=== PATIENT | male | born 1980 | race Caucasian/White ===

== ENCOUNTER 2016-09-25 06:28 | Emergency (ER) | payer OTHER ==
[~2016-09-25] VITALS: Ht 193 cm; Wt 103.9 kg
[~2016-09-25 06:28] MED LIST: MULT-506 PO
[2016-09-25 06:31] VITALS: TEMP 36.7; Ht 193 cm; Wt 103.9 kg
[2016-09-25] MEDS ORDERED: MoRPHine SULFATE 10 MG/ML CARP/VIAL ONE (06:40)
[2016-09-25] MEDS ORDERED: ONDANSETRON INJ 2 MG/ML 2 ML VIAL ONE (06:40)
[2016-09-25] MEDS ORDERED: ONDANSETRON INJ 2 MG/ML 2 ML VIAL IV STA (06:41)
[2016-09-25] MEDS ORDERED: MoRPHine SULFATE 10 MG/ML CARP/VIAL IV STA (06:41)
[2016-09-25] MEDS ORDERED: SODIUM CHLORIDE 0.9% 1000ML 1,000 ML IV STA (06:41)
[2016-09-25] MEDS ORDERED: SODIUM CHLORIDE 0.9% 1000ML 1,000 ML IV ONE (06:41)
--- NOTE | 2016-09-25 06:46 | EMERGENCY ROOM VISIT NOTE ---
History Report prepared by Jasiel: Erlin Ly Under the Supervision of: Dr. Mundo Coffey M.D. First contact with patient: 06:33 Chief Complaint: KIDNEY STONE Stated Complaint: KIDNEY STONE History of Present Illness The patient is a 36 year old male who presents to the Emergency Room with complaints of sudden right flank pain that started around 2 and a half hours ago. He says that the pain woke him up. He rates the pain as a 10 out of 10 in severity. The patient does have a history of kidney stones, 4 years ago. He also complains of chills, sweating, rapid breathing, and numbness in both arms. He denies any urinary symptoms or chest pain. The patient felt okay yesterday. He has no known allergies. The patient does have a pacemaker. He is not on any blood thinners. No fever. No chest pain or shortness of breath or anything to suggest cardiac disease Source of History: patient, spouse/significant other Onset: 2 and a half hours ago Position: other (right flank - pain) Symptom Intensity: 10/10 in severity Timing: other (sudden) Associated Symptoms: + chills, + diaphoresis, + numbness (in both arms), No chest pain, No urinary symptoms Note: Associated symptoms: Rapid breathing. Review of Systems See HPI for pertinent positives & negatives. A total of 10 systems reviewed and were otherwise negative. Past Medical & Surgical Medical Problems: (1) Kidney stone (2) Near syncope (3) Seizure-like activity Old medical records were reviewed. Nurse's notes were reviewed and I agree with. 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 Family History No significant family history Social History Smoking Status: Former Smoker Drug Use: none Marital Status: single Housing Status: lives with significant other Occupation Status: [employer] student Current/Historical Medications Scheduled Tamsulosin Hcl (Flomax), 0.4 MG PO QD Scheduled PRN Oxycodone Immediate Rel Tab (Roxicodone Ir), 1-2 TAB PO Q4H PRN for Severe Pain Allergies Coded Allergies: No Known Allergies (Unverified , 09/25/16) Physical Exam Vital Signs Date Time Temp Pulse Resp B/P Pulse Ox O2 Delivery O2 Flow Rate FiO2 09/25/16 10:35 86 18 122/80 95 Room Air 09/25/16 09:03 93 18 116/67 99 Room Air 09/25/16 07:04 72 18 127/81 99 Room Air 09/25/16 06:31 36.7 86 20 120/71 100 Room Air Physical Exam General: Well developed well nourished uncomfortable appearing, diaphoretic young male complaining of right flank pain, breathing comfortably on room air. Normal speech HEENT: Normal cephalic atraumatic. Pupils are equal round and reactive to light. Extraocular movements are intact. Oropharynx is pink with moist mucous membranes. No swelling of the mouth lips or tongue. Neck: Supple with a midline trachea. No meningeal signs or stiffness, no JVD or bruits. No Stridor. Chest: Clear to auscultation bilaterally. No wheezes or rhonchi. No increased work of breathing. Heart: regular rate and rhythm. Abdomen: Soft nontender, nondistended without rebound guarding or rigidity. Extremities: No cyanosis clubbing or edema. No calf tenderness or assymetry Spine/Back. Non tender to palpation. No CVA tenderness Skin: Good turgor without rashes. Neurologic exam: Cranial nerves two through 12 are intact. Motor and sensation are intact and symmetrical throughout. Medical Decision & Procedures ER Provider Diagnostic Interpretation: CT results as stated below per my review and radiologist interpretation: CT SCAN OF THE ABDOMEN AND PELVIS WITHOUT CONTRAST CLINICAL HISTORY: Right flank pain COMPARISON STUDY: No previous studies for comparison. TECHNIQUE: CT scan of the abdomen and pelvis was performed from the lung bases to the proximal femurs. Images are reviewed in the axial, sagittal, and coronal planes. IV contrast was not administered for this examination. CT DOSE: 1474.75 mGy.cm FINDINGS: Lower chest: There are minimal basilar atelectatic changes present. Liver: The unenhanced liver is normal in size, contour, and attenuation. There is no intrahepatic biliary ductal dilatation. Gallbladder: Unremarkable. Spleen: Normal in size and attenuation. Pancreas: Unremarkable. Adrenal glands: Unremarkable. Kidneys: There is a punctate nonobstructing lower pole left renal calculus. There is a punctate nonobstructing mid upper pole right renal calculus. There is right-sided hydronephrosis. There is obstructing 7 mm right ureteropelvic junction calculus. Bowel: There are no transition zones indicate bowel obstruction. The appendix appears normal. There is no acute diverticulitis. Peritoneum: There is no intraperitoneal free air or abdominal ascites. Vasculature: The abdominal aorta is normal in course and caliber. Adenopathy: None. Pelvic viscera: The bladder, and pelvic viscera are unremarkable. Skeletal structures: No destructive osseous lesions are seen. IMPRESSION: 1. 7 mm obstructing calculus at the level of the right ureteropelvic junction 2. Bilateral nephrolithiasis 3. No evidence of bowel obstruction. No evidence of free air 4. Normal appendix Electronically signed by: Prieto Dejesus M.D. 09/25/2016 7:19 AM Dictated Date/Time: 09/25/2016 7:16 AM Laboratory Results 09/25/16 06:39 Red Blood Count 4.85, Mean Corpuscular Volume 89.5, Mean Corpuscular Hemoglobin 31.8, Mean Corpuscular Hemoglobin Concent 35.5, Mean Platelet Volume 9.9, Neutrophils (%) (Auto) 49.0, Lymphocytes (%) (Auto) 41.4, Monocytes (%) (Auto) 6.8, Eosinophils (%) (Auto) 2.2, Basophils (%) (Auto) 0.4, Neutrophils # (Auto) 5.17, Lymphocytes # (Auto) 4.37, Monocytes # (Auto) 0.72, Eosinophils # (Auto) 0.23, Basophils # (Auto) 0.04 09/25/16 06:39 Test 09/25/16 06:39 09/25/16 07:45 White Blood Count 10.55 K/uL (4.8-10.8) Red Blood Count 4.85 M/uL (4.7-6.1) Hemoglobin 15.4 g/dL (14.0-18.0) Hematocrit 43.4 % (42-52) Mean Corpuscular Volume 89.5 fL (80-100) Mean Corpuscular Hemoglobin 31.8 pg (25-34) Mean Corpuscular Hemoglobin Concent 35.5 g/dl (32-36) Platelet Count 291 K/uL (130-400) Mean Platelet Volume 9.9 fL (7.4-10.4) Neutrophils (%) (Auto) 49.0 % Lymphocytes (%) (Auto) 41.4 % Monocytes (%) (Auto) 6.8 % Eosinophils (%) (Auto) 2.2 % Basophils (%) (Auto) 0.4 % Neutrophils # (Auto) 5.17 K/uL (1.4-6.5) Lymphocytes # (Auto) 4.37 K/uL (1.2-3.4) Monocytes # (Auto) 0.72 K/uL (0.11-0.59) Eosinophils # (Auto) 0.23 K/uL (0-0.5) Basophils # (Auto) 0.04 K/uL (0-0.2) RDW Standard Deviation 42.0 fL (36.4-46.3) RDW Coefficient of Variation 12.9 % (11.5-14.5) Immature Granulocyte % (Auto) 0.2 % Immature Granulocyte # (Auto) 0.02 K/uL (0.00-0.02) Anion Gap 18.0 mmol/L (3-11) Est Creatinine Clear Calc Drug Dose 105.4 ml/min Estimated GFR () 90.3 Estimated GFR (Non- 77.9 BUN/Creatinine Ratio 15.2 (10-20) Calcium Level 9.1 mg/dl (8.5-10.1) Total Bilirubin 0.9 mg/dl (0.2-1) Direct Bilirubin 0.2 mg/dl (0-0.2) Aspartate Amino Transf (AST/SGOT) 25 U/L (15-37) Alanine Aminotransferase (ALT/SGPT) 36 U/L (12-78) Alkaline Phosphatase 95 U/L (45-117) Total Protein 8.0 gm/dl (6.4-8.2) Albumin 4.4 gm/dl (3.4-5.0) Lipase 822 U/L (73-393) Urine Color YELLOW Urine Appearance CLEAR (CLEAR) Urine pH 5.5 (4.5-7.5) Urine Specific Walker 1.019 (1.000-1.030) Urine Protein NEG (NEG) Urine Glucose (UA) NEG (NEG) Urine Ketones 3+ (NEG) Urine Occult Blood 3+ (NEG) Urine Nitrite NEG (NEG) Urine Bilirubin NEG (NEG) Urine Urobilinogen NEG (NEG) Urine Leukocyte Esterase TRACE (NEG) Urine WBC (Auto) 1-5 /hpf (0-5) Urine RBC (Auto) >30 /hpf (0-4) Urine Hyaline Casts (Auto) 1-5 /lpf (0-5) Urine Epithelial Cells (Auto) 10-20 /lpf (0-5) Urine Bacteria (Auto) NEG (NEG) Laboratory studies as stated above per my review. Medications Administered Medications (Trade) Dose Ordered Sig/Milady Route Start Time Stop Time Status Last Admin Dose Admin Ondansetron HCl 4 mg 4 mg STK-MED ONCE .ROUTE 09/25/16 06:40 09/25/16 06:42 DC 09/25/16 06:45 4 MG Sodium Chloride 1,000 ml @ 999 mls/hr Q1H1M STAT IV 09/25/16 06:41 09/25/16 07:41 DC 09/25/16 06:41 999 MLS/HR Sodium Chloride (Nss 1000ml) 1,000 ml @ 200 mls/hr Q5H ONCE IV 09/25/16 06:41 09/25/16 11:29 DC 09/25/16 07:40 200 MLS/HR Morphine Sulfate (MoRPHine SULFATE INJ) 6 mg NOW STAT IV 09/25/16 06:41 09/25/16 06:43 DC 09/25/16 06:45 6 MG Ketorolac Tromethamine (Toradol Inj) 30 mg NOW STAT IV 09/25/16 09:13 09/25/16 09:15 DC 09/25/16 09:23 30 MG Potassium Chloride (Klor-Con M10) 40 meq NOW STAT PO 09/25/16 09:13 09/25/16 09:15 DC 09/25/16 09:23 40 MEQ Tamsulosin HCl (Flomax Cap) 0.4 mg NOW ONCE PO 09/25/16 10:30 09/25/16 10:31 DC 09/25/16 10:31 0.4 MG ED Course 0635: Past medical records reviewed. The patient was evaluated in room A11B, and a complete history and physical examination were performed. 0641: Ordered Zofran Inj 4 mg IV, NSS 1000 ml @ 200 mls/hr IV, NSS 1000 ml @ 999 mls/hr IV. 0651: I reevaluated the patient and his pain has went from a 10/10 to a 5/10. 0753: I reevaluated the patient and he is resting comfortably. 0912: I reevaluated the patient and he feels ready to go home, but I will page urology first. 0913: Ordered Klor-Con M10 40 meq PO, Toradol Inj 30 mg IV. 1008: I discussed the patient with Dr. Glo Pace urology - he says he will follow up with the patient as an outpatient. 1025: I reevaluated the patient and he is resting comfortably. The patient verbally expressed understanding and agreement of the treatment plan. The patient will be discharged. 1030: Ordered Flomax Cap 0.4 mg PO. Medical Decision Differential diagnoses include: kidney stone, kidney infection, arrhythmia, electrolyte or metabolic abnormality. This patient comes in as described above. He was placed in room A 11. He appears uncomfortable secondary to flank pain and this is similar very consistent with a kidney stone. IV access established hydrated aggressively with 1 L IV normal saline bolus and 200 mL an hour of IV normal saline. He morphine 6 mg IV and Zofran 4 mg IV and remained pain-free after this. He has no fever or white count to suggest infection. His urinalysis does not suggest infection. He has normal kidney function. He does have a medium to large proximal stone on the right at 8 mm. I did discuss the case with Dr. Cody, the urologist, who felt that he go home with a trial of passage. He'll follow up with him early this week and told the patient to call Wednesday. The patient does feel better and wants to go home. I did give him a dose of Toradol IV also as well as some by mouth potassium as his potassium was slightly low. He was also started on Flomax. He should rest and drink plenty fluids and strain his urine. Use ibuprofen as outlined in the discharge instructions and also use OxyIR if needed. He was warned that this could make him drowsy and do not take before drinking, driving, working. He was encouraged to return over the weekend if symptoms are not adequately controlled, increasing pain, fever or chills, worsening of systems, any new problems or concerns. The patient and his girlfriend were happy with the plan and he was discharged home with his girlfriend driving. Consults Time Called: 1000 Consulting Physician: Dr. Glo Pace urology Returned Call: [phone] I discussed the patient with Dr. Glo Pace urology - he says he will follow up with the patient as an outpatient. Impression Primary Impression: Kidney stone on right side Additional Impression: Renal colic Scribe Attestation The scribe's documentation has been prepared under my direction and personally reviewed by me in its entirety. I confirm that the note above accurately reflects all work, treatment, procedures, and medical decision making performed by me. Departure Information Dispostion Home / Self-Care Prescriptions Oxycodone Immediate Rel Tab (ROXICODONE IR) 5 Mg Tab 1-2 TAB PO Q4H Y for Severe Pain, #24 TAB Prov: Mundo Coffey M.D. 09/25/16 Tamsulosin Hcl (FLOMAX) 0.4 Mg Cap 0.4 MG PO QD for 10 Days, #10 CAP Prov: Mundo Coffey M.D. 09/25/16 Referrals No Doctor, Assigned (PCP) Steven Cody, Lara Vallejo,D.O. Forms HOME CARE DOCUMENTATION FORM, IMPORTANT VISIT INFORMATION Patient Instructions My [facility] Additional Instructions Rest. Drink plenty of fluids. Strain your urine. Use ibuprofen 600 mg every 6 hours, take with food. [id number]. For more severe pain, use OxyIR 5 mg, one or 2 pills every 4-6 hours as needed. OxyIR may make you drowsy and do not take before drinking or driving, working. Use Flomax once a day. Follow-up with Dr. Cody, urology on Wednesday for recheck. Return of the weekend to the ER if pain is not adequately controlled, fever or chills, not tolerating fluids, worsening symptoms, any new problems or concerns. Problem Qualifiers
[2016-09-25 06:58] LABS: BASO % 0.4 %; BASO ABS # 0.04 K/uL (0-0.2); COMPLETE YES; EOS % 2.2 %; HEMATOCRIT 43.4 % (42-52); IG% 0.2 %; LYMPH % 41.4 %; LYMPH ABS # 4.37 K/uL (1.2-3.4); MEAN CELL VOLUME 89.5 fL (80-100); MEAN CORPUSCULAR HEMOGLOBIN 31.8 pg (25-34); MEAN CORPUSCULAR HGB CONC 35.5 g/dl (32-36); MEAN PLATELET VOLUME 9.9 fL (7.4-10.4); MONO % 6.8 %; PLATELET COUNT 291 K/uL (130-400); RED BLOOD COUNT 4.85 M/uL (4.7-6.1); WHITE BLOOD COUNT 10.55 K/uL (4.8-10.8)
--- NOTE | 2016-09-25 07:21 | DIAGNOSTIC IMAGING REPORT ---
CT SCAN OF THE ABDOMEN AND PELVIS WITHOUT CONTRAST CLINICAL HISTORY: Right flank pain COMPARISON STUDY: No previous studies for comparison. TECHNIQUE: CT scan of the abdomen and pelvis was performed from the lung bases to the proximal femurs. Images are reviewed in the axial, sagittal, and coronal planes. IV contrast was not administered for this examination. CT DOSE: 1474.75 mGy.cm FINDINGS: Lower chest: There are minimal basilar atelectatic changes present. Liver: The unenhanced liver is normal in size, contour, and attenuation. There is no intrahepatic biliary ductal dilatation. Gallbladder: Unremarkable. Spleen: Normal in size and attenuation. Pancreas: Unremarkable. Adrenal glands: Unremarkable. Kidneys: There is a punctate nonobstructing lower pole left renal calculus. There is a punctate nonobstructing mid upper pole right renal calculus. There is right-sided hydronephrosis. There is obstructing 7 mm right ureteropelvic junction calculus. Bowel: There are no transition zones indicate bowel obstruction. The appendix appears normal. There is no acute diverticulitis. Peritoneum: There is no intraperitoneal free air or abdominal ascites. Vasculature: The abdominal aorta is normal in course and caliber. Adenopathy: None. Pelvic viscera: The bladder, and pelvic viscera are unremarkable. Skeletal structures: No destructive osseous lesions are seen. IMPRESSION: 1. 7 mm obstructing calculus at the level of the right ureteropelvic junction 2. Bilateral nephrolithiasis 3. No evidence of bowel obstruction. No evidence of free air 4. Normal appendix Electronically signed by: Prieto Dejesus M.D. 09/25/2016 7:19 AM Dictated Date/Time: 09/25/2016 7:16 AM
[2016-09-25 07:29] LABS: BUN/CREATININE RATIO 15.2 (10-20); CALCIUM 9.1 mg/dl (8.5-10.1); CREATININE 1.2 mg/dl (0.60-1.40)
[2016-09-25 07:31] LABS: POTASSIUM 2.9 mmol/L (3.5-5.1)
[2016-09-25 08:51] LABS: URINE APPEARANCE CLEAR (CLEAR); URINE BILIRUBIN NEG (NEG); URINE COLOR YELLOW; URINE NITRITE NEG (NEG); URINE PH 5.5 (4.5-7.5); URINE SPECIFIC GRAVITY 1.019 (1.000-1.030); UROBILINOGEN NEG (NEG)
[2016-09-25 09:08] LABS: MANUAL MICROSCOPIC REQUIRED? NO; REVIEW REQ? NO
[2016-09-25] MEDS ORDERED: KETOROLAC TROMETHAMINE 30 MG/ML VIAL IV STA (09:13)
[2016-09-25] MEDS ORDERED: POTASSIUM CHLORIDE 10 MEQ TABCR PO STA (09:13)
[2016-09-25] MEDS ORDERED: OXYC1TAB3 PO (10:28)
[2016-09-25] MEDS ORDERED: TAMS0.4C38 PO (10:28)
[2016-09-25] MEDS ORDERED: TAMSULOSIN HCL 0.4 MG CAP PO ONE (10:30)
[2016-09-25 10:35] VITALS: BP 122/80; PULSE 86; O2SAT 95
[2016-09-30] MEDS ORDERED: OXYC1TAB3 PO (08:48)
[2016-09-30] MEDS ORDERED: TAMS0.4C38 PO (08:48)
== END 2016-09-25 10:44 | disposition home or self-care (01) ==
LOC: C.EDB 06:29 → C.EDA 10:44
DX: N20.0 Calculus of kidney (principal); N23 Unspecified renal colic; Z95.0 Presence of cardiac pacemaker; Z87.891 Personal history of nicotine dependence